=== PATIENT | female | born 2000 | race Caucasian/White ===

== ENCOUNTER 2023-08-16 08:27 | Emergency (ER) | payer SELFPAY ==
[2023-08-16 08:27] VITALS: BP 130/74; PULSE 84; RESP 14; TEMP 35.8; O2SAT 98; BMI 33.0
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
== END 2023-08-16 09:42 | disposition home or self-care (01) ==
LOC: ED 09:32
PROVIDERS: Emergency Provider Emergency Medicine; Visit Provider Emergency Medicine
DX: S09.90XA Unspecified injury of head, initial encounter (principal); Y04.8XXA Assault by other bodily force, initial encounter
CPT/HCPCS: 99283

== ENCOUNTER 2024-12-07 09:10 | Emergency (ER) | payer SELFPAY ==
[2024-12-07 09:11] VITALS: BP 134/78; PULSE 96; RESP 18; TEMP 36.7; O2SAT 98; BMI 31.3
--- NOTE | 2024-12-07 09:20 | EX.ED.DYSGE1 ---
HPI History of Present Illness Chief Complaint: Abd Pain Narrative Narrative: Patient is a 24-year-old female with no known significant past medical history who presents to the emergency department chief complaint of abdominal pain. Patient states that this has been going on for approximately a week now, and when inquiring what changed today she states that she was just concerned. When asked what concerns her she states that she is not sure it just hurts. Patient states that her that her menstrual cycle was approximately about 20 days ago. Patient states that she does smoke and uses alcohol socially. Patient did admit to cocaine use and states that she will snort this denies any history of IV drug use. Patient says she is sexually active and not on control. Patient denies any previous abdominal surgeries denies any recent sick contacts. [facility] Medical History (Updated 12/07/24 @ 11:[address] Melvin Castro DO) Anxiety Home Medications ?Medication ?Instructions ?Recorded ?Last Taken ?Type dicyclomine 20 mg tablet 20 mg PO TID #20 tabs 12/07/24 Unknown Rx ondansetron 4 mg disintegrating 4 mg PO Q6H PRN nausea and 12/07/24 Unknown Rx tablet vomiting #20 tabs Allergy/AdvReac Type Severity Reaction Status Date / Time No Known Allergies Allergy Verified 12/07/24 09:11 Social History Smoking Status: Current every day smoker tobacco type: e-cigarettes ROS ROS ED ROS Narrative Constitutional: Denies any fevers, chills, headaches Eyes: Denies double vision Cardiovascular: Denies chest pain Respiratory: Shortness of breath Abdomen: Complains of abdominal pain and states that she is chronically nauseous this is not new for her denies any vomiting or diarrhea : Denies any painful urination, hematuria, polyuria, vaginal discharge Neurological: Denies any numbness, weakness, tingling Musculoskeletal: Denies back pain Skin: Denies any rashes or lesions EXAM Physical Exam Narrative Exam Narrative: General: Patient lying in bed resting comfortably did not appear to be acute distress Head: Atraumatic, normocephalic Eyes: PERRL bilaterally, EOMI bilaterally, no conjunctival injection noted Neck: Soft, supple, trachea midline Cardiovascular: Regular rate and rhythm no murmurs gallops rubs noted Respiratory: Clear to auscultation bilaterally no rales rhonchi or wheezes noted Abdomen: Soft, nondistended, diffuse tenderness to palpation no rebound or guarding exam Extremities: +5/5 strength noted in the bilateral upper and lower extremities, radial pulses +2/4 in the bilateral extremities, no pedal edema exam Neurological: Patient follow commands knew that she was at [facility] the year is 2024 Skin: Warm, dry, intact no rashes or lesions noted Const Vital Signs: 12/07/24 09:11 12/07/24 11:10 Temperature 98.1 F 98.3 F Temperature Source Oral Oral Pulse Rate 96 74 Respiratory Rate 18 12 Blood Pressure 134/78 H 137/65 H Blood Pressure Mean 96 89 Pulse Ox 98 99 Oxygen Delivery Method Room Air Room Air MDM MDM MDM Narrative Medical decision making narrative: Patient is a 24-year-old female who presented to the emergency department the chief complaint of abdominal pain that has been going on for a week now. On the differential diagnosis includes but not limited to ectopic , intrauterine , UTI, tubo-ovarian abscess, pancreatitis, cholecystitis, appendicitis. Once workup is obtained reviewed she will be reevaluated. Patient CBC reviewed showed no evidence leukocytosis white blood cell count was normal at 6.8, hemoglobin 14.8, platelet count of 314. Patient sodium is 137, potassium was 4, creatinine 0.78. Patient AST and ALT were normal at 19 and 10 respectively with a normal total bilirubin of 0.59. Lipase normal at 23 a test was negative. Patient urinalysis showed 5 high leukocyte esterase 25-50 white cells with rare bacteria she does not have any urinary symptoms this was sent for culture. Patient CT abdomen pelvis with IV contrast reviewed showed corpus luteum cyst on the left correlate with midcycle pain. Subtle stranding in the fat in the vicinity of the appendix however otherwise the appendix appears normal. Appendicitis is on the differential but not favored. On reevaluation the patient at 11:20 AM she is feeling better and would like to go home at this point time she was given Bentyl. Her abdomen remains benign Patient was advised to follow-up with her doctor in outpatient setting and return with worsening symptoms or any concerns. She will given prescription for Bentyl and Zofran for as needed pain and nausea. All question concerns answered she was discharged home in stable condition. Lab Data Labs: Laboratory Results - last 24 hr 12/07/24 12/07/24 09:26 09:32 WBC 6.8 RBC 4.78 Hgb 14.8 Hct 42.5 MCV 88.9 MCH 31.0 MCHC 34.8 RDW Std Deviation 37.2 RDW Coeff of Sandy 11.6 Plt Count 314 MPV 9.3 Immature Gran % (Auto) 0.100 Neut % (Auto) 67.6 Lymph % (Auto) 23.1 Barnes % (Auto) 6.4 Eos % (Auto) 2.4 Baso % (Auto) 0.4 Absolute Neuts (auto) 4.6 Absolute Lymphs (auto) 1.56 Nucleated RBC % 0 Sodium 137 Potassium 4.0 Chloride 104 Carbon Dioxide 20.5 L Anion Gap 12 BUN 12 Creatinine 0.78 Estim Creat Clear Calc 107.38 Est GFR (MDRD) Non-Af 109 BUN/Creatinine Ratio 15.5 Glucose 118 H Calcium 9.5 Total Bilirubin 0.59 AST 19 ALT 10 Alkaline Phosphatase 53 Total Protein 7.7 Albumin 4.6 Globulin 3.1 Albumin/Globulin Ratio 1.5 Lipase 23 Serum , Qual NEGATIVE Urine Color Yellow Urine Clarity Sl. Cloudy Urine pH 5.0 Ur Specific [place] 1.020 Urine Protein 15 H Urine Glucose (UA) Normal Urine Ketones Negative Urine Occult Blood 50 H Urine Nitrite Negative Urine Bilirubin Negative Urine Urobilinogen Normal Ur Leukocyte Esterase 500 H Urine RBC 0-5 SEEN Urine WBC 25-50 SEEN Ur Squamous Epith Cells 5-10 SEEN Urine Bacteria RARE Urine Mucus 0 SEEN Radiography Diagnostic Testing: Clinical Impression(s) from Imaging Studies Abdomen/Pelvis CT 12/07/24 10:08 IMPRESSION: 1. Corpus luteum on the left. Correlate with midcycle pain. 2. Subtle stranding of the fat in the vicinity of the appendix but the appendix appears otherwise unremarkable. Correlate with fever, white count and focal exam to the right lower quadrant. Appendicitis is in the differential but not favored. Close clinical follow-up suggested. [place] Alert: As above The critical findings in the findings and impression above were relayed directly by me by telephone to Melvin Castro on 12/07/2024 at 10:34 am with readback verification. Reading Location: [id number] Discharge Plan Triage Chief Complaint: Abd Pain ED Provider: Melvin Castro Dx/Rx/DC Orders Clinical Impression: Abdominal pain, History of anxiety Prescriptions: New dicyclomine 20 mg tablet 20 mg PO TID Qty: 20 0RF ondansetron 4 mg tablet,disintegrating 4 mg PO Q6H PRN (Reason: nausea and vomiting) Qty: 20 0RF Primary Care Provider: J Luis Martinez Referrals: J Luis Martinez MD [Primary Care Provider] - Activity Restrictions/Additional Instructions: Your blood work did not show any acute findings today. Your CT was normal. Use prescriptions are sent to your pharmacy as prescribed. Return with worsening symptoms or any other concerns otherwise follow-up your doctor in the outpatient setting. Print Language: Icelandic Disposition Disposition: Home, Self Care
[2024-12-07 09:39] LABS: Mucous, Urine 0 SEEN /hpf (<or=2+)
[2024-12-07 09:48] LABS: Color, Urine Yellow (Yellow); Glucose, Dipstick Normal (Normal); Ketone-Dipstick Negative (Negative); Leukocyte Esterase-Dipstick 500 /ul (Negative); Nitrite-Dipstick Negative (Negative); Occult Blood-Urine 50 /ul (Negative); Protein-Dipstick 15 mg/dl (Negative); Specific Gravity, Urine 1.020 (1.002-1.030); Urine Bilirubin Dipstick Negative (Negative)
[2024-12-07 09:48] LABS: Hematocrit 42.5 % (37-47); Hemoglobin 14.8 g/dL (12.0-15.0); Immature Granulocytes Count 0.010 X10^3/uL (0.0-0.0); Mean Corp Hgb Conc 34.8 g/dL (32-36); Mean Corpuscular Volume 88.9 fL (81-99); Mean Platelet Vol. 9.3 fl (6.2-12.0); NRBC Flagged by Analyzer 0 % (0-5); Platelet Count 314 K/mm3 (150-450); RBC Distribution Width CV 11.6 % (11.6-14.6); RBC Distribution Width SD 37.2 fl (35.1-43.9); Red Blood Count 4.78 M/mm3 (4.2-5.4); White Blood Count 6.8 K/mm3 (4.4-11.0)
[2024-12-07 09:52] LABS: Internal QC Validated? YES +Cl - CLEAR BKGD; Pregnancy, Serum, hCG Quali. NEGATIVE Negative; Record Kit Lot#, Serum Preg. 0000964736
[2024-12-07 10:05] LABS: Red Blood Cells-Urine 0-5 SEEN /hpf (0-5); Squamous Epithelial Cells - UA 5-10 SEEN /hpf (5-10)
--- NOTE | 2024-12-07 10:08 | CT_ITS ---
PROCEDURE: ABDOMEN/PELVIS W IV CONT ONLY 12/07/2024 REASON FOR EXAM: ABD PAIN, DIFFUSE TECHNIQUE: Procedure Code: [id number] Modality: CT Procedure: ABDOMEN/PELVIS W IV CONT ONLY Coronal and Sagittal reconstruction series were provided. CONTRAST: Isovue 370 VOLUME: 98 mL One or more dose reduction techniques were used (e.g., Automated exposure control, adjustment of the mA and/or kV according to patient size, use of iterative reconstruction technique. RADIATION DOSE SUMMARY: CTDlvol: 25 mGy DLP: 807 mGycm COMPARISON: None FINDINGS: Lung bases: Clear Liver: Clear. Gallbladder: Normal Spleen: Normal Pancreas: Normal Adrenals: Normal. Kidneys: Normal. Bladder: Normal. Reproductive Organs: Uterus is anteverted. Left corpus luteum is present. Bowel: Stomach is normal. Small bowel is normal. Few scattered colonic diverticula are present. Modest amount of formed stool in the rectal vault. Appendix: Very subtle stranding is seen in the vicinity of the appendix. The appendix is not particularly distended, edematous, thickened or inflamed. No appendicoliths seen. Lymph nodes: None appear enlarged. Vasculature: The abdominal aorta and IVC are normal. Peritoneum / Retroperitoneum: No free air, free fluid, mass Bones: Normal CT/Abdomen/Pelvis W IV Cont ONLY IMPRESSION: 1. Corpus luteum on the left. Correlate with midcycle pain. 2. Subtle stranding of the fat in the vicinity of the appendix but the appendi x appears otherwise unremarkable. Correlate with fever, white count and focal exam to the right lower quadrant. Appendicitis is in the differential but not favored. Close clinical follow-up suggested. [place] Alert: As above The critical findings in the findings and impression above were relayed directl y by me by telephone to Melvin Castro on 12/07/2024 at 10:34 am with readback verification. Reading Location: [id number]
[2024-12-07 10:29] LABS: AST(SGOT) 19 U/L (<=31); Alanine Aminotransfer ALT/SGPT 10 U/L (<=34); Albumin, Serum 4.6 g/dL (3.5-5.0); Alkaline Phosphatase 53 U/L (35-104); Anion Gap 12 (5-15); BUN 12 mg/dL (4-19); BUN/Creat Ratio 15.5 RATIO (10-20); Calcium,Total 9.5 mg/dL (7.6-11.0); Carbon Dioxide 20.5 mmol/L (21.0-32.0); Chloride 104 mmol/L (98-108); Estimated Creatinine Clearance 107.38 ml/min (50-250); Globulin 3.1 g/dL (2.2-4.2); Glucose 118 mg/dL (70-99); Lipase 23 U/L (13-75); Potassium 4.0 mmol/L (3.3-5.1)
[2024-12-07 11:10] VITALS: BP 137/65; PULSE 74; RESP 12; TEMP 36.8; O2SAT 99
[2024-12-07 11:39] VITALS: BP 131/64; PULSE 62; RESP 17; TEMP 36.9; O2SAT 99
== END 2024-12-07 11:41 | disposition home or self-care (01) ==
PROVIDERS: Emergency Provider Emergency Medicine; Visit Provider Emergency Medicine
DX: R10.9 Unspecified abdominal pain (principal); F41.9 Anxiety disorder, unspecified; F17.290 Nicotine dependence, other tobacco product, uncomplicated
CPT/HCPCS: 74177; 80053; 81001; 83690; 84703; 85025; 87086; 87088; 99283; Q9967; A4216